=== PATIENT | female | born 1940 | race African-American/Black ===

== ENCOUNTER 2018-10-26 09:59 | Outpatient (CLI) | payer MEDICARE, MEDICAID ==
--- NOTE | 2018-10-26 12:00 | MRI ---
EXAM: MRI right hip PROVIDED CLINICAL HISTORY: Bony demineralization COMPARISON: None FINDINGS: The right hip flexor, abductor, adductor and hamstring tendons demonstrate an intact MR appearance. The amount of fluid within the right hip joint appears physiologic. The acetabular labrum and femoral -acetabular articular cartilage are suboptimally evaluated in the absence. There is nondisplaced tearing demonstrated involving the anterior-superior acetabular labrum. No focal articular cartilage defect is evident No focal concerning regional marrow or muscular signal abnormality is apparent. The courses of the re gional major neurovascular structures appear unremarkable. IMPRESSION: Nondisplaced anterior-superior acetabular labral tear.
== END 2018-10-26 10:00 | disposition home or self-care (01) ==
LOC: MRI 09:59
PROVIDERS: ATTEND Internal Medicine
DX: M81.0 Age-related osteoporosis without current pathological fracture (principal); S73.191A Other sprain of right hip, initial encounter